=== PATIENT | female | born 1945 | race Caucasian/White ===

== ENCOUNTER → 2019-11-14 14:48 | Outpatient (CLI) | payer OTHER, SELFPAY ==
--- NOTE | ~2019-11-14 | CT_ITS ---
EXAMINATION: CT abdomen pelvis wo con EXAM DATE: 11/14/2019 15:05 INDICATION: Diarrhea. History of lupus. Right lower quadrant pain. Abdominal distention. TECHNIQUE: Spiral CT of the abdomen and pelvis was performed without contrast. Axial, coronal and s agittal images were reviewed. The dose-length product (DLP) for this examination was 356.90 mGy-cm. The exposure was tailored according to patient size (auto mA exposure control), and iterative recons truction (ASIR) was used as additional dose reduction technique. There is no prior study for compari son. FINDINGS: The liver, spleen, adrenal glands and pancreas are unremarkable. Gallbladder is unremarkab le. No biliary obstruction. There is no nephrolithiasis or hydronephrosis. Fibroid uterus. The b ladder is unremarkable. There is no retroperitoneal or pelvic lymphadenopathy. The appendix is not positively visualized. There is no pericecal inflammatory change to suggest appe ndicitis. There is mild scattered colonic diverticulosis. There is no adjacent inflammatory change t o suggest diverticulitis. The stomach and small bowel are unremarkable. There is expected amount of colonic stool. No free intraperitoneal gas. The heart is normal in size. There are no pericardia l or pleural effusions. The lung bases are unremarkable. Moderate to severe disc disease L1-S2 and L5-S1. There are no osteoblastic or osteolytic lesions identified. IMPRESSION: Mild colonic diverticulosis. Fibroid. Reviewed, dictated and finalized at location B.
== END ==
PROVIDERS: Visit Provider Family Medicine
DX: K57.30 Diverticulosis of large intestine without perforation or abscess without bleeding (principal)
CPT/HCPCS: 74176

== ENCOUNTER 2020-01-23 13:44 | Outpatient (CLI) | payer OTHER, SELFPAY ==
--- NOTE | ~2020-01-23 | US_ITS ---
EXAMINATION: US carotid duplex BI DATE: 01/23/2020 14:30 INDICATION: Transient ischemic attack. Transient right-sided visual loss. TECHNIQUE: Grayscale, color Doppler, and pulsed Doppler images of the cervical carotid arteries were obtained. The degree of vessel stenosis is placed in one of the following categories: normal, <50%, 5 0-69%, >=70% but less than near-occlusion, near-occlusion, or total occlusion. Note that percent sten osis relative to normal distal artery lumen diameter is indirectly measured from velocity measurement s as described by Robin, et al. Radiology 2003; [id number]:[id number]. COMPARISON: None. FINDINGS: RIGHT: The right common carotid artery (CCA) peak systolic velocity (PSV) is 110 cm/s. The right internal ca rotid artery (ICA) PSV is 75 cm/s. The right ICA end-diastolic velocity (EDV) is 24 cm/s. The right I CA/CCA PSV ratio is 0.7. Grayscale and color Doppler images yield an estimate of <50% diameter reduct ion from plaque in the ICA. There is antegrade flow in the right vertebral artery. LEFT: The left CCA PSV is 91 cm/s. The left ICA PSV is 77 cm/s. The left ICA EDV is 25 cm/s. The left ICA/C CA PSV ratio is 0.8. Grayscale and color Doppler images yield an estimate of <50% diameter reduction from plaque in the ICA. There is antegrade flow in the left vertebral artery. IMPRESSION: 1. <50% stenosis in the right internal carotid artery. 2. <50% stenosis in the left internal carotid artery. Reviewed, dictated and finalized at location A. N SORTER
== END 2020-01-23 13:45 | disposition home or self-care (01) ==
PROVIDERS: PCP Family Medicine
DX: G45.3 Amaurosis fugax (principal)
CPT/HCPCS: 93880

== ENCOUNTER 2025-01-06 08:46 | Outpatient (CLI) | payer OTHER, SELFPAY ==
--- NOTE | ~2025-01-06 | US_ITS ---
ULTRASOUND ABDOMEN LIMITED (RIGHT UPPER QUADRANT) Clinical History: right upper quadrant pain Comparison: CT abdomen pelvis 11/14/2019 Technique: Right upper quadrant sonography Findings: Liver: Subtle micronodular contour. Normal size. Normal echotexture. No intrahepatic biliary ductal dilatation. Normal hepatopedal flow main portal vein. Common Duct: Normal caliber. 3 mm. Gallbladder: Stones. No wall thickening. No pericholecystic fluid. Negative sonographic Shi's sign per technologist report. Pancreas: Unremarkable. IMPRESSION: 1. No acute findings. 2. Gallstones. No evidence of acute cholecystitis. 3. Early cirrhosis possible. Reviewed, dictated and finalized at location R. ISSION CLERK
== END 2025-01-06 08:47 | disposition home or self-care (01) ==
LOC: MICIMG 08:47
PROVIDERS: PCP Student in an Organized Health Care Education/Training Program; Visit Provider Student in an Organized Health Care Education/Training Program
DX: K80.20 Calculus of gallbladder without cholecystitis without obstruction (principal)
CPT/HCPCS: 76705